=== PATIENT | male | born 1960 | race Caucasian/White ===

== ENCOUNTER 2021-07-05 10:17 | Emergency (ER) | payer MEDICARE, OTHER ==
[~2021-07-05] VITALS: Ht 170.2 cm; Wt 79.4 kg
[~2021-07-05 10:17] MED LIST: ALBU90OI INH; AMOCLA875 PO; BUPR150T2 PO; CLON.5 PO; CLON1 PO; CLON2 PO; DIAZ5 PO; DOCU100 PO; FLUT.05NI; HYDACE10B PO; HYDACE5 PO; HYDMOR2 PO; IBUP800 PO; LAMO100 PO; METO50 PO; MIRT15 PO; MIRT30 PO; NAPR500 PO; NICO2 PO; OXYACE5T PO; PRAZ1 PO; PRED20 PO; PROM25 PO; RISP1 PO; RISP2 PO; SIMV40 PO; TRAM50 PO; ZOLP10 PO
[2021-07-05] MEDS ORDERED: Zithromax250 MG PO (12:24)
== END 2021-07-05 12:29 | disposition home or self-care (01) ==
LOC: ER 10:17
DX: J18.9 Pneumonia, unspecified organism (principal); J45.909 Unspecified asthma, uncomplicated; Z20.822 Contact with and (suspected) exposure to COVID-19; Z79.899 Other long term (current) drug therapy
CPT/HCPCS: 71046; 99283-25

== ENCOUNTER 2021-10-12 18:12 | Emergency (ER) | payer MEDICARE, OTHER ==
[~2021-10-12] VITALS: Ht 170.2 cm; Wt 79.4 kg
[~2021-10-12 18:12] MED LIST changes: +Zithromax250 MG PO
[2021-10-12 18:41] LABS: BASOPHILS ABSOLUTE AUTO 0.03 K/mm3 (0.00-0.23); BASOPHILS PERCENT AUTO 0 % (0-2); EOSINOPHILS PERCENT AUTO 1 % (0-6); Hematocrit 45.9 % (37.0-53.0); Hemoglobin 15.5 g/dL (13.5-17.5); IMMATURE GRAN ABSOLUTE AUTO 0.08 K/mm3 (0.00-0.10); IMMATURE GRAN PERCENT AUTO 1 % (0-1); LYMPHOCYTES ABSOLUTE AUTO 2.66 K/mm3 (0.84-5.20); LYMPHOCYTES PERCENT AUTO 18 % (21-46); MONOCYTES ABSOLUTE AUTO 0.91 K/mm3 (0.16-1.47); MONOCYTES PERCENT AUTO 6 % (4-13); Mean Corpuscular HGB 31.9 pg (26.0-34.0); Mean Corpuscular HGB Conc 33.8 g/dL (31.5-36.5); Mean Corpuscular Volume 94 fL (80-100); NEUTROPHILS ABSOLUTE AUTO 10.58 K/mm3 (1.96-9.15); NEUTROPHILS PERCENT AUTO 73 % (41-73); Platelet Count 296 K/mm3 (150-400); RDW Coefficient Variation 14.1 % (11.7-14.2); RDW Standard Deviation 49.8 fL (35.1-46.3); Red Blood Cell Count 4.86 M/mm3 (4.30-5.90); White Blood Cell Count 14.46 K/mm3 (4.00-11.30)
[2021-10-12 19:05] LABS: Alanine Aminotransfer (ALT/SGP 32 U/L (12-78); Albumin, Blood 3.8 g/dL (3.4-5.0); Albumin/Globulin Ratio 1.1 (0.8-1.8); Alk Phos 100 U/L (50-136); Anion Gap 8 mmol/L (6-16); Aspartate Aminotrans (AST/SGOT 24 U/L (12-37); Bilirubin, Total 0.8 mg/dL (0.1-1.0); Blood Urea Nitrogen 7 mg/dL (8-24); Bun/Creatinine Ratio 8.8 (12.0-20.0); CO2, Blood 24 mmol/L (21-32); Calcium, Blood 8.5 mg/dL (8.5-10.1); Chloride, Blood 105 mmol/L (98-108); Globulin, Blood 3.5 g/dL (2.2-4.0); Glomerular Filtration Rate >60 (60-); Glucose, Blood 107 mg/dL (70-99); Potassium, Blood 3.3 mmol/L (3.5-5.5); Sodium, Blood 137 mmol/L (136-145); Total Protein, Blood 7.3 g/dL (6.4-8.2)
[2021-10-12] MEDS ORDERED: NITR.4SL SL (22:30)
== END 2021-10-12 22:50 | disposition home or self-care (01) ==
LOC: ER 18:12
PROVIDERS: Physician Assistant
DX: I20.9 Angina pectoris, unspecified (principal); J44.9 Chronic obstructive pulmonary disease, unspecified; I25.2 Old myocardial infarction; F17.210 Nicotine dependence, cigarettes, uncomplicated; Z79.899 Other long term (current) drug therapy
CPT/HCPCS: 36415; 71046; 80053; 83690; 83880; 84484; 85025; 93005; 93010; 99285-25; A9270

== ENCOUNTER → 2022-09-29 | Outpatient (CLI) | payer MEDICARE, OTHER ==
[~2022-09-29] MED LIST changes: +NITR.4SL SL
[2022-09-29 11:38] LABS: BASOPHILS ABSOLUTE AUTO 0.02 K/mm3 (0.00-0.23); BASOPHILS PERCENT AUTO 0 % (0-2); EOSINOPHILS ABSOLUTE AUTO 0.07 K/mm3 (0.00-0.68); EOSINOPHILS PERCENT AUTO 1 % (0-6); Hematocrit 48.3 % (37.0-53.0); Hemoglobin 16.5 g/dL (13.5-17.5); IMMATURE GRAN ABSOLUTE AUTO 0.04 K/mm3 (0.00-0.10); IMMATURE GRAN PERCENT AUTO 0 % (0-1); LYMPHOCYTES ABSOLUTE AUTO 1.79 K/mm3 (0.84-5.20); LYMPHOCYTES PERCENT AUTO 16 % (21-46); MONOCYTES ABSOLUTE AUTO 0.71 K/mm3 (0.16-1.47); MONOCYTES PERCENT AUTO 6 % (4-13); Mean Corpuscular HGB 31.6 pg (26.0-34.0); Mean Corpuscular HGB Conc 34.2 g/dL (31.5-36.5); Mean Corpuscular Volume 93 fL (80-100); Mean Platelet Volume 9.1 fL (9.1-12.4); NEUTROPHILS ABSOLUTE AUTO 8.52 K/mm3 (1.96-9.15); NEUTROPHILS PERCENT AUTO 76 % (41-73); Platelet Count 341 K/mm3 (150-400); RDW Coefficient Variation 13.6 % (11.7-14.2); RDW Standard Deviation 46.3 fL (35.1-46.3); Red Blood Cell Count 5.22 M/mm3 (4.30-5.90); White Blood Cell Count 11.15 K/mm3 (4.00-11.30)
[2022-09-29 12:17] LABS: Albumin/Globulin Ratio 0.8 (0.8-1.8); Bilirubin, Total 0.6 mg/dL (0.1-1.0); Bun/Creatinine Ratio 9.8 (12.0-20.0); Calcium, Blood 8.6 mg/dL (8.5-10.1); Creatinine, Blood 0.82 mg/dL (0.60-1.20); Globulin, Blood 3.8 g/dL (2.2-4.0); Potassium, Blood 3.9 mmol/L (3.5-5.5); Total Protein, Blood 6.8 g/dL (6.4-8.2)
== END | disposition home or self-care (01) ==
LOC: LAB SHORT 11:30
PROVIDERS: Chiropractor
DX: K04.7 Periapical abscess without sinus (principal); E86.0 Dehydration
CPT/HCPCS: 80053; 85025

== ENCOUNTER 2022-10-01 11:45 | Emergency (ER) | payer MEDICARE, OTHER ==
[~2022-10-01] VITALS: Ht 170.2 cm; Wt 77.1 kg
[2022-10-01] MEDS ORDERED: OXYC10TA19 PO (12:30)
[2022-10-01] MEDS ORDERED: AMOX-CLAV 875-1 EAC5 (12:31)
[2022-10-01] MEDS ORDERED: PRAV20 (12:31)
[2022-10-01] MEDS ORDERED: ANORO ELLIPTA1 EAC1 IH (12:31)
[2022-10-01] MEDS ORDERED: LOSA50 PO (12:32)
[2022-10-01] MEDS ORDERED: AMLODIPINE BES2.5 MG PO (12:32)
[2022-10-01] MEDS ORDERED: COMBIVENT RESPIM4 G1 (12:32)
[2022-10-01] MEDS ORDERED: ONDANSETRON ODT 8 MG (12:34)
[2022-10-01] MEDS ORDERED: ASPI81CH PO (12:35)
[2022-10-01 14:38] VITALS: BP 136/89
== END 2022-10-01 14:55 | disposition home or self-care (01) ==
LOC: ER 11:45
DX: K04.7 Periapical abscess without sinus (principal); K02.9 Dental caries, unspecified; J44.9 Chronic obstructive pulmonary disease, unspecified; F17.210 Nicotine dependence, cigarettes, uncomplicated; Z79.899 Other long term (current) drug therapy
CPT/HCPCS: 70491; 96365-59; 99283-25; J0696; Q9967